=== PATIENT | female | born 1940 | race Caucasian/White ===

== ENCOUNTER 2021-10-01 08:17 | Day surgery (SDC) | payer OTHER ==
[~2021-10-01] VITALS: Ht 152 cm; Wt 51.0 kg
[~2021-10-01 08:17] MED LIST: ACETAMINOPHEN500 M1 PO; EVISTA60 MG PO; MOBIC7.5 MG PO; TRAZODONE HCL150 MG PO
[2021-10-01] MEDS ORDERED: CHILDREN'S ASPI81 MG PO (15:25)
[2021-10-01 20:30] LABS: BASOPHIL 0.2 % (0-2); EOSINOPHIL 0 % (0-7); HCT 32.4 % (37.0-47.0); HGB 10.5 g/dl (12.5-16.0); LYMPHOCYTE 5.7 % (15-48); MCH 32.2 pg (25.0-31.0); MCHC 32.4 g/dL (32.0-36.0); MCV 99.4 fL (78.0-100.0); MONOCYTE 6.6 % (0-12); MPV 9.2 fL (6.0-9.5); NEUTROPHIL 87.1 % (41-80); NRBC 0; PLT 220 K/uL (150-400); RBC 3.26 M/uL (4.20-5.40); RDW 15.4 % (11.5-14.0); WBC 14.4 K/uL (4.0-10.5)
[2021-10-01 20:42] LABS: INR 1.08 (0.9-1.2); PROTHROMBIN TIME 13.7 SECONDS (11.9-13.9); PTT 29.7 SECONDS (24.9-34.6)
[2021-10-01 20:48] LABS: BUN/CREAT RATIO (CALC) 36.2 RATIO; CREATININE 0.69 mg/dL (0.51-0.95); POTASSIUM 3.8 mmol/L (3.5-5.1)
[2021-10-02 06:59] LABS: BASOPHIL 0.2 % (0-2); EOSINOPHIL 0 % (0-7); HCT 28.3 % (37.0-47.0); HGB 9.2 g/dl (12.5-16.0); LYMPHOCYTE 7.2 % (15-48); MCH 31.9 pg (25.0-31.0); MCHC 32.5 g/dL (32.0-36.0); MCV 98.3 fL (78.0-100.0); MONOCYTE 6.1 % (0-12); MPV 9.5 fL (6.0-9.5); NEUTROPHIL 85.9 % (41-80); NRBC 0; PLT 207 K/uL (150-400); RBC 2.88 M/uL (4.20-5.40); RDW 15.5 % (11.5-14.0); WBC 12.4 K/uL (4.0-10.5)
[2021-10-02 07:18] LABS: BUN/CREAT RATIO (CALC) 30.9 RATIO; CREATININE 0.68 mg/dL (0.51-0.95); POTASSIUM 3.8 mmol/L (3.5-5.1)
[2021-10-02] MEDS ORDERED: FEOSOL325 MG PO (08:47)
== END 2021-10-02 15:45 | disposition home health service (06) ==
LOC: FAS 08:17 → FOR 10:30 → FAS 11:00 → FOR 12:00 → FMS 12:43 → FAS 10-02 15:45
PROVIDERS: Nurse Practitioner Acute Care; Orthopaedic Surgery
DX: M16.11 Unilateral primary osteoarthritis, right hip (principal); E78.5 Hyperlipidemia, unspecified; G47.00 Insomnia, unspecified; M81.0 Age-related osteoporosis without current pathological fracture; Z79.899 Other long term (current) drug therapy
CPT/HCPCS: 0054T; 27130; 36415; 73501; 80048; 85025; 85610; 85730; 86850; 86900; 86901; 94010; 94760; 97110; 97116; 97161; 97165; 97535; C1776; J0171; J0360; J0697; J1100; J1170; J1885; J2270; J2405; J2704; J2795; J3010; J7120